=== PATIENT | male | born 1960 | race Caucasian/White ===

== ENCOUNTER 2019-04-15 06:46 | Emergency (ER) | payer SELFPAY ==
[~2019-04-15] VITALS: Ht 165.1 cm; Wt 76.2 kg
[2019-04-15 06:53] VITALS: BP 192/90
--- NOTE | 2019-04-15 06:53 | NUR ---
PT TAKEN TO BED 4
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
--- NOTE | 2019-04-15 07:05 | NUR ---
SEEN AND EXAMINED BY ERMD AND WITH ORDERS.
--- NOTE | 2019-04-15 07:09 | NUR ---
REPORT RECEIVED FROM JULIETTE NANCE
[2019-04-15] MEDS ORDERED: LIDOCAINE MPF 1% 10 MG/ML VIAL INJ ONE (07:10)
--- NOTE | 2019-04-15 07:27 | NUR ---
Dr. Galvin at bedside for procedure
--- NOTE | 2019-04-15 07:33 | NUR ---
XRAY AT BEDSIDE
--- NOTE | 2019-04-15 08:00 | NUR ---
EMT AT BEDSIDE IRRIGATING AND CLEANSING WOUND, APPLIED NONADHESIVE DRESSING AND GAUZE WRAP TO SUTURES TO RIGHT FOOT.
[2019-04-15 08:05] VITALS: BP 166/88
--- NOTE | 2019-04-15 08:05 | NUR ---
Patient discharged with v/s stable. Pt encouraged to follow up with PCP in 2 days and then follow up in 10 days for suture removal. Pt encouraged to remain on light duty at work until medically cleared by PCP. Written and verbal after care instructions given and explained. Patient verbalized understanding. Ambulatory with steady gait. All questions addressed prior to discharge.
--- NOTE | 2019-04-15 08:05 | NUR ---
PLACED NONADHERENT GAUZE WRAP ON PT'S RIGHT FOOT
== END 2019-04-15 08:05 | disposition home or self-care (01) ==
LOC: MED 06:46
DX: S91.311A Laceration without foreign body, right foot, initial encounter (principal); I10 Essential (primary) hypertension; W25.XXXA Contact with sharp glass, initial encounter; Y93.89 Activity, other specified; Y92.009 Unspecified place in unspecified non-institutional (private) residence as the place of occurrence of the external cause; Y99.8 Other external cause status
CPT/HCPCS: 12002; 73630; 99283; J2001; Q0092

== ENCOUNTER 2019-04-24 07:59 | Emergency (ER) | payer SELFPAY ==
[~2019-04-24] VITALS: Ht 165.1 cm; Wt 77.1 kg
[2019-04-24 08:05] VITALS: BP 203/104
--- NOTE | 2019-04-24 08:37 | NUR ---
PATIENT PRESENTS TO ED FOR SUTURE REMOVAL ON PLANTAR ASPECT OF R FOOT. SUTURE WAS DONE 10 DAYS AGO. -REDNESS, -D/C, -SWELLLING, -NUMBNESS. PATIENT STATES PAIN OF 0/10 AT THIS TIME; PATIENT'S BLOOD PRESSURE ELEVATED AT 203/104. RELATIVE, WHO IS AN MD, GAVE PRESCRIPTION OF UNRECALLED RX FOR HYPERTENSION. PT TOOK MED 30 MINS AGO. WILL CONTINUE TO MONITOR BP. -DIZZINES, -H/A, -CP, -NUMBNESS OF EXTREMITIES. PATIENT POSITIONED FOR COMFORT; HOB ELEVATED; BEDRAILS UP X2; BED DOWN. ER MD SAW PATIENT.
--- NOTE | 2019-04-24 08:45 | NUR ---
PATIENT BLOOD PRESSURE 185/89. MADE AWARE. OKAY FOR DISCHARGE.
[2019-04-24 08:47] VITALS: BP 185/89
--- NOTE | 2019-04-24 08:47 | NUR ---
Patient discharged with v/s stable. Written and verbal after care instructions given and explained. Patient verbalized understanding. Ambulatory with steady gait. All questions addressed prior to discharge. Advised to follow up with PMD.
== END 2019-04-24 08:47 | disposition home or self-care (01) ==
LOC: MED 07:59
DX: S91.311D Laceration without foreign body, right foot, subsequent encounter (principal); I10 Essential (primary) hypertension; X58.XXXD Exposure to other specified factors, subsequent encounter
CPT/HCPCS: 99281